=== PATIENT | female | born 1995 | race American Indian/Alaskan Native ===

== ENCOUNTER 2024-11-26 16:24 | Emergency (ER) | payer SELFPAY ==
[2024-11-26] MEDS: hydrOXYzine HCl 25 MG Tab PO ONE (16:48)
== END 2024-11-26 19:10 | disposition home or self-care (01) ==
LOC: MW.ED 16:24
DX: F41.9 Anxiety disorder, unspecified (principal); S60.221A Contusion of right hand, initial encounter; Z75.8 Other problems related to medical facilities and other health care; Z79.899 Other long term (current) drug therapy; X58.XXXA Exposure to other specified factors, initial encounter
CPT/HCPCS: 73130; 93005; 99285; A9270; 93010; 99284